=== PATIENT | female | born 1965 | race Caucasian/White ===

== ENCOUNTER → 2017-05-10 | Outpatient (CLI) | payer OTHER | END | disposition home or self-care (01) | LOC: CFH 10:00 | PROVIDERS: ATTEND Obstetrics & Gynecology | DX: Z12.31 Encounter for screening mammogram for malignant neoplasm of breast (principal) | CPT/HCPCS: 77067 ==

== ENCOUNTER → 2018-06-26 | Outpatient (CLI) | payer OTHER | END | disposition home or self-care (01) | LOC: CFH 07:18 | PROVIDERS: ATTEND Obstetrics & Gynecology | DX: Z12.31 Encounter for screening mammogram for malignant neoplasm of breast (principal) | CPT/HCPCS: 77067 ==

== ENCOUNTER 2020-05-09 16:02 | Outpatient (CLI) | payer OTHER | END 2020-05-09 23:59 | disposition home or self-care (01) | LOC: CFH 16:02 | PROVIDERS: ATTEND Physician Assistant | DX: Z12.31 Encounter for screening mammogram for malignant neoplasm of breast (principal) | CPT/HCPCS: 77063; 77067 ==